=== PATIENT | female | born 1995 | race Caucasian/White ===

== ENCOUNTER 2021-07-19 09:56 | Outpatient (CLI) | payer OTHER ==
[~2021-07-19 09:56] MED LIST: BENADRYL25 MG PO; PRENATAL LOW I1 EACH
== END 2021-07-19 09:58 | disposition home or self-care (01) ==
LOC: RAD 09:56
DX: M54.50 Low back pain, unspecified (principal)

== ENCOUNTER 2021-08-17 15:10 | Outpatient (CLI) | payer OTHER | END 2021-08-17 15:14 | disposition home or self-care (01) | LOC: LAB 15:10 | DX: U07.1 COVID-19 (principal) ==

== ENCOUNTER 2021-10-26 14:30 | Outpatient (CLI) | payer OTHER | END 2021-10-26 14:35 | disposition home or self-care (01) | LOC: PPH VACUNA 14:30 | PROVIDERS: ATTEND Emergency Medicine Pediatric Emergency Medicine | DX: Z23 Encounter for immunization (principal) ==

== ENCOUNTER 2021-11-21 11:19 | Outpatient (CLI) | payer OTHER | END 2021-11-21 11:20 | disposition home or self-care (01) | LOC: LAB 11:19 | PROVIDERS: ATTEND Internal Medicine Gastroenterology | DX: Z11.52 Encounter for screening for COVID-19 (principal); Z20.822 Contact with and (suspected) exposure to COVID-19; Z20.828 Contact with and (suspected) exposure to other viral communicable diseases ==

== ENCOUNTER 2022-01-03 08:57 | Emergency (ER) | payer OTHER ==
[~2022-01-03] VITALS: Ht 160 cm; Wt 86.2 kg
[2022-01-03] MEDS ORDERED: LEVSIN/SL0.125 MG PO (15:15)
[2022-01-03] MEDS ORDERED: PEPCID AC20 MG PO (15:15)
[2022-01-03] MEDS ORDERED: ONDANSETRON ODT4 MG PO (15:15)
== END 2022-01-03 15:29 ==
LOC: ER 08:57
DX: R10.10 Upper abdominal pain, unspecified (principal); E86.0 Dehydration

== ENCOUNTER 2022-03-21 11:22 | Outpatient (CLI) | payer OTHER ==
[~2022-03-21 11:22] MED LIST changes: +LEVSIN/SL0.125 MG PO; +ONDANSETRON ODT4 MG PO; +PEPCID AC20 MG PO
== END 2022-03-21 11:23 | disposition home or self-care (01) ==
LOC: LAB 11:22
PROVIDERS: ATTEND Internal Medicine
DX: K29.70 Gastritis, unspecified, without bleeding (principal); Z13.1 Encounter for screening for diabetes mellitus; Z13.220 Encounter for screening for lipoid disorders; Z13.29 Encounter for screening for other suspected endocrine disorder; E55.9 Vitamin D deficiency, unspecified; N95.1 Menopausal and female climacteric states; E28.39 Other primary ovarian failure; E04.1 Nontoxic single thyroid nodule; E78.00 Pure hypercholesterolemia, unspecified; E08.00 Diabetes mellitus due to underlying condition with hyperosmolarity without nonketotic hyperglycemic-hyperosmolar coma (NKHHC); N39.0 Urinary tract infection, site not specified

== ENCOUNTER 2022-04-07 16:10 | Outpatient (CLI) | payer OTHER | END 2022-04-07 16:11 | disposition home or self-care (01) | LOC: LAB 16:10 | PROVIDERS: ATTEND Internal Medicine Geriatric Medicine | DX: Z20.822 Contact with and (suspected) exposure to COVID-19 (principal) ==

== ENCOUNTER 2022-04-09 14:40 | Emergency (ER) | payer OTHER ==
[~2022-04-09] VITALS: Ht 160 cm; Wt 87.1 kg
== END 2022-04-09 18:47 | disposition home or self-care (01) ==
LOC: ER 14:40
DX: J06.9 Acute upper respiratory infection, unspecified (principal)

== ENCOUNTER 2022-06-11 16:20 | Emergency (ER) | payer OTHER ==
[~2022-06-11] VITALS: Ht 144.8 cm; Wt 91.2 kg
== END 2022-06-11 19:41 | disposition home or self-care (01) ==
LOC: ER 16:20
DX: K29.60 Other gastritis without bleeding (principal)

== ENCOUNTER 2022-06-13 09:56 | Emergency (ER) | payer OTHER ==
[~2022-06-13] VITALS: Ht 160 cm; Wt 91.2 kg
== END 2022-06-13 13:52 | disposition home or self-care (01) ==
LOC: ER 09:56
DX: K59.09 Other constipation (principal); R10.2 Pelvic and perineal pain; R11.0 Nausea

== ENCOUNTER 2022-10-28 08:09 | Outpatient (CLI) | payer OTHER | END 2022-10-28 08:13 | disposition home or self-care (01) | LOC: LAB 08:09 | PROVIDERS: ATTEND Internal Medicine | DX: K29.70 Gastritis, unspecified, without bleeding (principal); Z13.1 Encounter for screening for diabetes mellitus; Z13.220 Encounter for screening for lipoid disorders; Z13.29 Encounter for screening for other suspected endocrine disorder ==

== ENCOUNTER 2022-11-22 19:17 | Emergency (ER) | payer OTHER ==
[~2022-11-22] VITALS: Ht 160 cm; Wt 94.3 kg
== END 2022-11-22 21:25 | disposition home or self-care (01) ==
LOC: ER 19:17
DX: J06.9 Acute upper respiratory infection, unspecified (principal); Z20.822 Contact with and (suspected) exposure to COVID-19

== ENCOUNTER → 2022-12-20 | Emergency (ER) | payer OTHER ==
[~2022-12-20] VITALS: Ht 160 cm; Wt 95.3 kg
== END | disposition home or self-care (01) ==
LOC: ER 17:55
DX: F41.0 Panic disorder [episodic paroxysmal anxiety] (principal)

== ENCOUNTER → 2023-02-20 08:02 | Outpatient (CLI) | payer OTHER ==
[2023-02-20 08:43] LABS: HEMATOCRIT 37.2 % (36.0-45.00); HEMOGLOBIN 12.5 g/dL (12.0-15.00); MEAN CELL VOLUME 89.9 fL (80.00-100.00); MEAN CORPUSCULAR HEMOGLOBIN 30.1 pg (27.00-32.0); MEAN CORPUSCULAR HGB CONC 33.5 g/dl (32.0-36.0); PLATELET COUNT 212 K/uL (150-450); RED BLOOD COUNT 4.14 M/uL (4.00-6.00); RED CELL DISTRIBUTION WIDTH 13.8 % (11.5-14.5)
[2023-02-20 08:44] LABS: PH,URINE 5.5 (5.0-8.0); URINE APPEARANCE Clear; URINE BILIRRUBIN Negative (NEGATIVE); URINE BLOOD Negative; URINE COLOR Yellow; URINE GLUCOSE Negative (NEGATIVE); URINE LEUKOCYTE Negative; URINE NITRATE Negative; URINE PROTEIN Negative (NEGATIVE); URINE UROBILINOGEN 0.2 E.U./dl
[2023-02-20 08:47] LABS: URINE EPITHELIAL CELLS 32.4 uL (0.0-38.8); URINE RBC 3.5 uL (0.0-20.8); URINE WBC 10.1 uL (0.0-23.2)
[2023-02-20 08:50] LABS: ERYTHROCYTE SEDIMENTATION RATE 24 mm/hr
[2023-02-20 09:35] LABS: ALBUMIN 3.5 gm/dL (3.4-5.0); BILIRUBIN TOTAL 0.39 mg/dL (0.3-1.2); CALCIUM 8.7 mg/dL (8.5-10.1); CREATININE SERUM 0.78 mg/dL (0.55-1.02); FREE TRIODOTIRONINE 2.3 pg/ml (2.18-3.98); GFR 87.94; GLOBULINA 3.6 G/DL (2.4-3.5); POTASSIUM 4.31 mEq/L (3.5-5.1); T4 TOTAL 9.01 UG/DL (4.8-13.9); TOTAL PROTEIN 7.1 gm/dL (6.4-8.2); TSH 1.78 uIU/mL (0.358-3.74)
[2023-02-20 09:36] LABS: C-REACTIVE PROTEIN 1.17 MG/DL (0.00-0.29)
[2023-02-21 06:07] LABS: INSULIN LEVELS 9.8 uIU/mL (2.6-24.9)
[2023-02-21 16:10] LABS: VITAMIN D 1 25 53.2 pg/mL (24.8-81.5)
== END | disposition home or self-care (01) ==
LOC: LAB 08:02
PROVIDERS: ATTEND Internal Medicine
DX: K29.70 Gastritis, unspecified, without bleeding (principal); L02.214 Cutaneous abscess of groin; R73.9 Hyperglycemia, unspecified; E78.9 Disorder of lipoprotein metabolism, unspecified; Z13.29 Encounter for screening for other suspected endocrine disorder

== ENCOUNTER → 2023-03-16 09:26 | Outpatient (CLI) | payer OTHER ==
[2023-03-16 10:53] LABS: MYCOPLASMA PNEUMONIAE IGM REACTIVE (NO REACTIVE)
== END | disposition home or self-care (01) ==
LOC: LAB 09:26
PROVIDERS: ATTEND Emergency Medicine Pediatric Emergency Medicine
DX: Z11.52 Encounter for screening for COVID-19 (principal); Z59.11 Inadequate housing environmental temperature

== ENCOUNTER 2023-08-21 08:24 | Outpatient (CLI) | payer OTHER ==
[~2023-08-21 08:24] MED LIST changes: +NAPROXEN500 MG PO; +NORFLEX100MG PO
[2023-08-21 09:20] LABS: HEMATOCRIT 34.9 % (36.0-45.00); HEMOGLOBIN 11.7 g/dL (12.0-15.00); MEAN CELL VOLUME 85.9 fL (80.00-100.00); MEAN CORPUSCULAR HEMOGLOBIN 28.9 pg (27.00-32.0); MEAN CORPUSCULAR HGB CONC 33.6 g/dl (32.0-36.0); PLATELET COUNT 203 K/uL (150-450); RED BLOOD COUNT 4.06 M/uL (4.00-6.00); RED CELL DISTRIBUTION WIDTH 14.4 % (11.5-14.5)
[2023-08-21 09:23] LABS: URINE APPEARANCE Clear; URINE BILIRRUBIN Negative (NEGATIVE); URINE BLOOD Moderate; URINE COLOR Yellow; URINE GLUCOSE Negative (NEGATIVE); URINE LEUKOCYTE Negative; URINE NITRATE Negative; URINE PROTEIN Negative (NEGATIVE); URINE UROBILINOGEN 0.2 E.U./dl
[2023-08-21 09:29] LABS: URINE BACTERIA 2489.7 uL (0.0-1933); URINE EPITHELIAL CELLS 76.3 uL (0.0-38.8); URINE RBC 8.5 uL (0.0-20.8); URINE WBC 40.1 uL (0.0-23.2)
[2023-08-21 10:09] LABS: ALBUMIN 3.3 gm/dL (3.4-5.0); BILIRUBIN TOTAL 0.53 mg/dL (0.3-1.2); CALCIUM 8.6 mg/dL (8.5-10.1); CHOL HDL RATIO 2.6 (0-5.0); CREATININE SERUM 0.68 mg/dL (0.55-1.02); GFR 102.29; GLOBULINA 3.7 G/DL (2.4-3.5); POTASSIUM 3.86 mEq/L (3.5-5.1); TSH 1.31 uIU/mL (0.358-3.74)
[2023-08-21 10:12] LABS: URINE CRYSTALS FEW /HPF
== END 2023-08-21 08:27 | disposition home or self-care (01) ==
LOC: LAB 08:24
PROVIDERS: ATTEND Internal Medicine
DX: E55.9 Vitamin D deficiency, unspecified (principal); K29.70 Gastritis, unspecified, without bleeding; Z13.220 Encounter for screening for lipoid disorders; Z00.00 Encounter for general adult medical examination without abnormal findings; Z13.29 Encounter for screening for other suspected endocrine disorder; N39.0 Urinary tract infection, site not specified; E66.3 Overweight; L02.214 Cutaneous abscess of groin; R73.9 Hyperglycemia, unspecified; Z13.1 Encounter for screening for diabetes mellitus; E78.9 Disorder of lipoprotein metabolism, unspecified

== ENCOUNTER 2023-10-02 08:07 | Outpatient (CLI) | payer OTHER ==
[2023-10-02 08:44] LABS: HEMATOCRIT 37.8 % (36.0-45.00); HEMOGLOBIN 12.6 g/dL (12.0-15.00); MEAN CELL VOLUME 88.7 fL (80.00-100.00); MEAN CORPUSCULAR HEMOGLOBIN 29.6 pg (27.00-32.0); MEAN CORPUSCULAR HGB CONC 33.4 g/dl (32.0-36.0); PLATELET COUNT 184 K/uL (150-450); RED BLOOD COUNT 4.26 M/uL (4.00-6.00); RED CELL DISTRIBUTION WIDTH 14.2 % (11.5-14.5)
[2023-10-02 09:13] LABS: URINE APPEARANCE Clear; URINE BILIRRUBIN Negative (NEGATIVE); URINE BLOOD Negative; URINE COLOR Yellow; URINE GLUCOSE Negative (NEGATIVE); URINE KETONE Negative (NEGATIVE); URINE LEUKOCYTE Negative; URINE NITRATE Negative; URINE PROTEIN Negative (NEGATIVE); URINE UROBILINOGEN 0.2 E.U./dl
[2023-10-02 09:18] LABS: URINE BACTERIA 391.7 uL (0.0-1933); URINE EPITHELIAL CELLS 28.2 uL (0.0-38.8); URINE WBC 10.3 uL (0.0-23.2)
[2023-10-02 09:31] LABS: URINE RBC 1.2 uL (0.0-20.8)
[2023-10-02 09:32] LABS: ALBUMIN 3.5 gm/dL (3.4-5.0); BILIRUBIN TOTAL 0.4 mg/dL (0.3-1.2); CALCIUM 8.9 mg/dL (8.5-10.1); CHOL HDL RATIO 3.2 (0-5.0); CREATININE SERUM 0.74 mg/dL (0.55-1.02); GFR 92.78; GLOBULINA 3.6 G/DL (2.4-3.5); POTASSIUM 4.5 mEq/L (3.5-5.1); TOTAL PROTEIN 7.1 gm/dL (6.4-8.2); TSH 1.5 uIU/mL (0.358-3.74)
[2023-10-02] MEDS ORDERED: PROTONIX20 MG (20:19)
[2023-10-02] MEDS ORDERED: DICLOFENAC POTA50 MG PO (22:47)
[2023-10-03 07:07] LABS: HEPATITIS B CORE IGG Negative (Negative); VARICELLA ZOSTER VIRUS IGG 504 index (Immune >165)
== END 2023-10-02 08:17 | disposition home or self-care (01) ==
LOC: LAB 08:07
PROVIDERS: ATTEND Internal Medicine
DX: Z01.84 Encounter for antibody response examination (principal); E66.3 Overweight; N39.0 Urinary tract infection, site not specified; Z13.29 Encounter for screening for other suspected endocrine disorder; Z13.220 Encounter for screening for lipoid disorders; K29.70 Gastritis, unspecified, without bleeding; L02.214 Cutaneous abscess of groin; R73.9 Hyperglycemia, unspecified; R78.9 Finding of unspecified substance, not normally found in blood; E55.9 Vitamin D deficiency, unspecified; Z13.1 Encounter for screening for diabetes mellitus; Z00.00 Encounter for general adult medical examination without abnormal findings

== ENCOUNTER 2023-10-02 20:05 | Emergency (ER) | payer OTHER ==
[~2023-10-02] VITALS: Ht 160 cm; Wt 98.0 kg
[2023-10-02] MEDS ORDERED: PROTONIX20 MG (20:19)
[2023-10-02] MEDS ORDERED: KETOROLAC TROMETHAMINE 30 MG VIAL IM STA (22:35)
[2023-10-02] MEDS ORDERED: DICLOFENAC POTA50 MG PO (22:47)
[2023-10-02] MEDS ORDERED: KETOROLAC TROMETHAMINE 30 MG VIAL ONE (23:36)
== END 2023-10-03 00:09 | disposition home or self-care (01) ==
LOC: ER 20:07
DX: M25.571 Pain in right ankle and joints of right foot (principal)

== ENCOUNTER 2023-10-28 08:36 | Emergency (ER) | payer OTHER ==
[~2023-10-28] VITALS: Ht 160 cm; Wt 96.2 kg
[~2023-10-28 08:36] MED LIST changes: +DICLOFENAC POTA50 MG PO; +PROTONIX20 MG
[2023-10-28] MEDS ORDERED: RINGERS SOLUTION,LACTATED 1,000 ML IV STA (09:12)
[2023-10-28 09:53] LABS: HEMATOCRIT 37.4 % (36.0-45.00); HEMOGLOBIN 12.6 g/dL (12.0-15.00); MEAN CELL VOLUME 88.5 fL (80.00-100.00); MEAN CORPUSCULAR HEMOGLOBIN 29.8 pg (27.00-32.0); MEAN CORPUSCULAR HGB CONC 33.6 g/dl (32.0-36.0); PLATELET COUNT 205 K/uL (150-450); RED BLOOD COUNT 4.23 M/uL (4.00-6.00); RED CELL DISTRIBUTION WIDTH 14.5 % (11.5-14.5)
[2023-10-28 10:00] LABS: CALCIUM 8.6 mg/dL (8.5-10.1); CREATININE SERUM 0.78 mg/dL (0.55-1.02); GFR 87.32; POTASSIUM 3.82 mEq/L (3.5-5.1)
[2023-10-28 10:08] LABS: PH,URINE 5.5 (5.0-8.0); URINE APPEARANCE Clear; URINE BILIRRUBIN Negative (NEGATIVE); URINE BLOOD Negative; URINE COLOR Yellow; URINE GLUCOSE Negative (NEGATIVE); URINE KETONE Negative (NEGATIVE); URINE LEUKOCYTE Trace; URINE NITRATE Negative; URINE PROTEIN Negative (NEGATIVE); URINE UROBILINOGEN 0.2 E.U./dl
[2023-10-28 10:12] LABS: URINE BACTERIA 1378.4 uL (0.0-1933); URINE EPITHELIAL CELLS 64.4 uL (0.0-38.8); URINE RBC 5.3 uL (0.0-20.8); URINE WBC 30.7 uL (0.0-23.2)
[2023-10-28 10:14] LABS: URINE CAST 0.15 uL (0.0-1.40)
== END 2023-10-28 10:58 | disposition home or self-care (01) ==
LOC: ER 08:38
PROVIDERS: General Practice
DX: R10.9 Unspecified abdominal pain (principal); N39.0 Urinary tract infection, site not specified

== ENCOUNTER 2023-11-02 20:31 | Emergency (ER) | payer OTHER ==
[~2023-11-02] VITALS: Ht 160 cm; Wt 72.6 kg
== END 2023-11-02 22:46 | disposition home or self-care (01) ==
LOC: ER 20:33
DX: J06.9 Acute upper respiratory infection, unspecified (principal); Z20.822 Contact with and (suspected) exposure to COVID-19

== ENCOUNTER 2023-11-04 08:46 | Emergency (ER) | payer OTHER ==
[~2023-11-04] VITALS: Ht 160 cm; Wt 96.2 kg
[2023-11-04] MEDS ORDERED: BENZONATATE 100 MG CAPSULE PO ONE (09:00)
[2023-11-04 10:07] LABS: HEMATOCRIT 37.3 % (36.0-45.00); HEMOGLOBIN 12.4 g/dL (12.0-15.00); MEAN CELL VOLUME 87.4 fL (80.00-100.00); MEAN CORPUSCULAR HEMOGLOBIN 29.1 pg (27.00-32.0); MEAN CORPUSCULAR HGB CONC 33.3 g/dl (32.0-36.0); PLATELET COUNT 186 K/uL (150-450); RED BLOOD COUNT 4.27 M/uL (4.00-6.00); RED CELL DISTRIBUTION WIDTH 14.4 % (11.5-14.5)
== END 2023-11-04 11:22 | disposition home or self-care (01) ==
LOC: ER 08:48
PROVIDERS: General Practice
DX: R53.81 Other malaise (principal); J06.9 Acute upper respiratory infection, unspecified; R05.9 Cough, unspecified; Z20.822 Contact with and (suspected) exposure to COVID-19

== ENCOUNTER 2023-12-03 07:06 | Emergency (ER) | payer OTHER ==
[~2023-12-03] VITALS: Ht 160 cm; Wt 94.3 kg
[2023-12-03] MEDS ORDERED: BENZONATATE 100 MG CAPSULE PO ONE (08:30)
[2023-12-03] MEDS ORDERED: ACETAMINOPHEN 500 MG GEL..CAP PO ONE (08:30)
[2023-12-03 08:46] LABS: HEMATOCRIT 38.4 % (36.0-45.00); HEMOGLOBIN 12.7 g/dL (12.0-15.00); MEAN CORPUSCULAR HEMOGLOBIN 29.5 pg (27.00-32.0); MEAN CORPUSCULAR HGB CONC 33.2 g/dl (32.0-36.0); PLATELET COUNT 179 K/uL (150-450); RED BLOOD COUNT 4.31 M/uL (4.00-6.00); RED CELL DISTRIBUTION WIDTH 14.2 % (11.5-14.5)
[2023-12-03 09:08] LABS: CALCIUM 8.7 mg/dL (8.5-10.1); CREATININE SERUM 0.76 mg/dL (0.55-1.02); GFR 89.97; POTASSIUM 4.02 mEq/L (3.5-5.1)
[2023-12-03] MEDS ORDERED: PAXLOVID 300-11 EAC1 PO (09:58)
[2023-12-03] MEDS ORDERED: ZITHROMAX200 MG PO (09:58)
[2023-12-03] MEDS ORDERED: NASAL MIST126 ML NASAL (09:58)
[2023-12-03] MEDS ORDERED: BENZONATATE150 MG PO (09:58)
== END 2023-12-03 10:03 | disposition home or self-care (01) ==
LOC: ER 07:08
PROVIDERS: General Practice
DX: U07.1 COVID-19 (principal)

== ENCOUNTER 2024-01-31 06:57 | Outpatient (CLI) | payer OTHER ==
[~2024-01-31 06:57] MED LIST changes: +BENZONATATE150 MG PO; +NASAL MIST126 ML NASAL; +PAXLOVID 300-11 EAC1 PO; +ZITHROMAX200 MG PO
== END 2024-01-31 07:01 | disposition home or self-care (01) ==
LOC: LAB 06:57
DX: A49.3 Mycoplasma infection, unspecified site (principal); J11.1 Influenza due to unidentified influenza virus with other respiratory manifestations

== ENCOUNTER 2024-04-04 08:38 | Outpatient (CLI) | payer OTHER ==
[2024-04-04 10:14] LABS: HEMATOCRIT 37.4 % (36.0-45.00); HEMOGLOBIN 12.6 g/dL (12.0-15.00); MEAN CELL VOLUME 88.6 fL (80.00-100.00); MEAN CORPUSCULAR HEMOGLOBIN 29.8 pg (27.00-32.0); MEAN CORPUSCULAR HGB CONC 33.6 g/dl (32.0-36.0); PLATELET COUNT 197 K/uL (150-450); RED BLOOD COUNT 4.22 M/uL (4.00-6.00); RED CELL DISTRIBUTION WIDTH 14.8 % (11.5-14.5)
[2024-04-04 10:17] LABS: URINE APPEARANCE Clear; URINE BILIRRUBIN Negative (NEGATIVE); URINE BLOOD Negative; URINE COLOR Yellow; URINE GLUCOSE Negative (NEGATIVE); URINE KETONE Negative (NEGATIVE); URINE LEUKOCYTE Trace; URINE NITRATE Negative; URINE PROTEIN Negative (NEGATIVE); URINE UROBILINOGEN 0.2 E.U./dl
[2024-04-04 10:21] LABS: URINE BACTERIA 990.1 uL (0.0-1933); URINE EPITHELIAL CELLS 12.8 uL (0.0-38.8); URINE RBC 2.6 uL (0.0-20.8)
[2024-04-04 11:04] LABS: ALBUMIN 3.4 gm/dL (3.4-5.0); BILIRUBIN TOTAL 0.31 mg/dL (0.3-1.2); CALCIUM 8.3 mg/dL (8.5-10.1); CHOL HDL RATIO 2.5 (0-5.0); CREATININE SERUM 0.76 mg/dL (0.55-1.02); GFR 89.97; GLOBULINA 3.6 G/DL (2.4-3.5); POTASSIUM 4.39 mEq/L (3.5-5.1); TSH 1.42 uIU/mL (0.358-3.74)
== END 2024-04-04 08:48 | disposition home or self-care (01) ==
LOC: LAB 08:38
DX: E78.00 Pure hypercholesterolemia, unspecified (principal); E03.9 Hypothyroidism, unspecified; E11.9 Type 2 diabetes mellitus without complications; D64.9 Anemia, unspecified; E10.9 Type 1 diabetes mellitus without complications; E66.3 Overweight; N39.0 Urinary tract infection, site not specified; Z13.29 Encounter for screening for other suspected endocrine disorder; Z00.00 Encounter for general adult medical examination without abnormal findings; Z13.220 Encounter for screening for lipoid disorders; K29.70 Gastritis, unspecified, without bleeding; E55.9 Vitamin D deficiency, unspecified

== ENCOUNTER 2024-04-06 12:51 | Emergency (ER) | payer OTHER ==
[~2024-04-06] VITALS: Ht 154.9 cm; Wt 91.2 kg
[2024-04-06] MEDS ORDERED: ACETAMINOPHEN 500 MG GEL..CAP PO ONE (14:25)
[2024-04-06] MEDS ORDERED: KETOROLAC TROMETHAMINE 30 MG VIAL IV STA (15:21)
[2024-04-06] MEDS ORDERED: METOCLOPRAMIDE HCL 5 MG/ML VIAL IV STA (15:22)
[2024-04-06] MEDS ORDERED: SUMATRIPTAN SUCCINATE 6 MG/0.5 ML VIAL SUBCUTANEO STA (15:22)
[2024-04-06] MEDS ORDERED: 0.9 % SODIUM CHLORIDE 1,000 ML IV SCH (15:30)
[2024-04-06] MEDS ORDERED: KETOROLAC TROMETHAMINE 30 MG VIAL ONE (15:47)
[2024-04-06] MEDS ORDERED: SUMATRIPTAN SUCCINATE 6 MG/0.5 ML VIAL SUBCUTANEO ONE (15:47)
[2024-04-06] MEDS ORDERED: METOCLOPRAMIDE HCL 5 MG/ML VIAL ONE (15:47)
== END 2024-04-06 20:48 | disposition home or self-care (01) ==
LOC: ER 12:54
DX: G43.909 Migraine, unspecified, not intractable, without status migrainosus (principal); R42 Dizziness and giddiness

== ENCOUNTER 2024-04-11 13:38 | Outpatient (CLI) | payer OTHER | END 2024-04-11 13:39 | disposition home or self-care (01) | LOC: RAD 13:38 | PROVIDERS: ATTEND Internal Medicine | DX: M54.2 Cervicalgia (principal); M54.6 Pain in thoracic spine; M54.50 Low back pain, unspecified ==

== ENCOUNTER → 2024-06-04 | Emergency (ER) | payer OTHER ==
[~2024-06-04] VITALS: Ht 160 cm; Wt 88.9 kg
[~2024-06-04] MED LIST changes: +GUAIFENESIN 200 MG/10 ML BLIST.PACK PO ONE; +GUAIFENESIN 200 MG/10 ML BLIST.PACK PO STA; +IPRATROPIUM BROMIDE 0.5 MG/2.5 ML AMPUL.NEB IH ONE; +IPRATROPIUM BROMIDE 0.5 MG/2.5 ML AMPUL.NEB IH SCH
[2024-06-04 20:33] LABS: HEMATOCRIT 36.7 % (36.0-45.00); HEMOGLOBIN 12.3 g/dL (12.0-15.00); MEAN CELL VOLUME 89.1 fL (80.00-100.00); MEAN CORPUSCULAR HGB CONC 33.6 g/dl (32.0-36.0); PLATELET COUNT 191 K/uL (150-450); RED BLOOD COUNT 4.11 M/uL (4.00-6.00); RED CELL DISTRIBUTION WIDTH 13.8 % (11.5-14.5)
[2024-06-04 21:07] LABS: COVID-19 AG NEGATIVE (NEGATIVE); INFLUENZA A AG NEGATIVE (NEGATIVE)
== END | disposition home or self-care (01) ==
LOC: ER 18:55
PROVIDERS: General Practice
DX: R05.9 Cough, unspecified (principal); Z20.822 Contact with and (suspected) exposure to COVID-19

== ENCOUNTER 2024-08-27 19:45 | Emergency (ER) | payer OTHER ==
[~2024-08-27] VITALS: Ht 160 cm; Wt 87.5 kg
[~2024-08-27 19:45] MED LIST changes: -GUAIFENESIN 200 MG/10 ML BLIST.PACK PO ONE; -GUAIFENESIN 200 MG/10 ML BLIST.PACK PO STA; -IPRATROPIUM BROMIDE 0.5 MG/2.5 ML AMPUL.NEB IH ONE; -IPRATROPIUM BROMIDE 0.5 MG/2.5 ML AMPUL.NEB IH SCH
[2024-08-27] MEDS ORDERED: ACETAMINOPHEN 500 MG GEL..CAP PO ONE (20:30)
[2024-08-27 21:08] LABS: BASO % 0.2 % (0.1-1.2); EOS # 0.09 (0.04-0.54); EOS % 1.1 % (0.7-7.0); LYMPH # 1.91 (1.18-3.74); LYMPH % 23.1 % (19.3-53.1); MEAN PLATELET VOLUME 11.10 fl (9.4-12.4); MONO # 0.61 (0.24-0.82); MONO % 7.4 % (4.7-12.5); NEUT # 5.59 (1.56-6.13); NEUT % 67.7 % (34.0-71.1); RED CELL DISTRIBUTION WIDTH 14.6 % (11.6-14.4)
[2024-08-27 21:33] LABS: URINE APPEARANCE Clear; URINE BILIRRUBIN Negative (NEGATIVE); URINE BLOOD Negative; URINE COLOR Yellow; URINE GLUCOSE Negative (NEGATIVE); URINE KETONE Trace (NEGATIVE); URINE LEUKOCYTE Negative; URINE NITRATE Negative; URINE PROTEIN Negative (NEGATIVE); URINE UROBILINOGEN 0.2 E.U./dl
[2024-08-27 21:37] LABS: URINE BACTERIA 243.5 uL (0.0-1933); URINE EPITHELIAL CELLS 10.9 uL (0.0-38.8); URINE RBC 3.8 uL (0.0-20.8); URINE WBC 7.9 uL (0.0-23.2)
[2024-08-27 21:57] LABS: URINE CAST 0.00 uL (0.0-1.40)
== END 2024-08-27 22:18 ==
LOC: ER 19:49
PROVIDERS: General Practice
DX: O20.8 Other hemorrhage in early pregnancy (principal); Z3A.08 8 weeks gestation of pregnancy